=== PATIENT | male | born 1980 | race African-American/Black ===

== ENCOUNTER 2018-08-28 20:36 | Emergency (ER) | payer MEDICAID ==
[~2018-08-28] VITALS: Ht 182.9 cm; Wt 119.0 kg
[2018-08-28 21:05] VITALS: BP 138/84
== END 2018-08-29 00:29 | disposition left against medical advice (07) ==
LOC: ER 20:36
DX: K52.9 Noninfective gastroenteritis and colitis, unspecified (principal); Z53.21 Procedure and treatment not carried out due to patient leaving prior to being seen by health care provider